=== PATIENT | male | born 1995 | race Caucasian/White ===

== ENCOUNTER 2023-04-27 19:26 | Emergency (ER) | payer OTHER | END 2023-04-27 20:38 | disposition home or self-care (01) | LOC: JP.ED 19:26 | DX: M25.511 Pain in right shoulder (principal); M54.6 Pain in thoracic spine; Z88.2 Allergy status to sulfonamides; W10.9XXA Fall (on) (from) unspecified stairs and steps, initial encounter; Y92.89 Other specified places as the place of occurrence of the external cause; Y99.0 Civilian activity done for income or pay | CPT/HCPCS: 73030-26-RT; 73030-RT; 99283 ==